=== PATIENT | female | born 1955 | race Caucasian/White ===

== ENCOUNTER 2019-10-29 10:10 | Day surgery (SDC) | payer OTHER, SELFPAY ==
[2019-10-29] MEDS: SODIUM CHLORIDE 0.9% 1,000 ML 200 ML IV (10:27)
[2019-10-29 10:41] VITALS: BP 138/79; PULSE 80; RESP 15; TEMP 36.6; O2SAT 97
[2019-10-29 10:42] VITALS: BMI 25.8
--- NOTE | 2019-10-29 11:31 | PM.HP.1 ---
History of Present Illness History of Present Illness Date Patient Seen: 10/29/19 Time Patient Seen: 11:40 Chief complaint: [id number] Narrative: Patient presents for colorectal screening. There prior colonoscopy 5 years ago which was significant for 3 adenomatous polyps which were removed.. No personal or family history of colon cancer. On further history denies any recent gastrointestinal symptoms. No nausea, vomiting, abdominal pain, loss of appetite, unexplained weight loss, change in bowel habits, diarrhea, constipation, melena, hematochezia, or bright red blood per rectum. Patient History Medical History (Updated 10/29/19 @ 11:41 by Arnaldo Baeza MD) Adenomatous polyps (Acute) HTN (hypertension) (Acute) Family & Social History Social History: household members friend(s) Tobacco & Substance use: Smoking Status Never smoker alcohol intake frequency a few times a week Substance Use Type does not use Meds Home Medications and Allergies Home Medications Medication Instructions Recorded Confirmed Type Cozaar 50 mg PO DAILY 10/29/19 10/29/19 History Lamictal 100 mg PO DAILY 10/29/19 10/29/19 History hydrochlorothiazide 25 mg PO DAILY 10/29/19 10/29/19 History Allergies Allergy/AdvReac Type Severity Reaction Status Date / Time No Known Drug Allergies Allergy Verified 10/29/19 10:31 Review of Systems Review of Systems Narrative: A 10 point review of systems is negative except as noted in the HPI Exam Vital Signs (past 8 hours): - 10/29/19 10:41 Temperature 97.8 F Pulse Rate 80 Respiratory Rate 15 Blood Pressure 138/79 Pulse Oximetry 97 Oxygen Delivery Method Room Air Narrative Exam Narrative: General-no acute distress, well nourished HEENT-moist mucous membranes, no scleral icterus Neck-supple, no lymphadenopathy Chest- non labored respirations, clear to auscultation bilaterally Cardiac-regular rate no peripheral edema Abdomen-soft, nontender, non distended Extremities-warm, well perfused Neurological-alert and oriented, no focal deficits Assessment & Plan Assessment and plan (1) Screening for colon cancer: Current visit: Yes Status: Acute Assessment & Plan narrative: The patient requires colorectal screening and colonoscopy is recommended. Technical details were discussed. Risks, benefits, alternatives explained. Risks including but not limited to myocardial infarction, aspiration, bleeding, pain, missed lesion, incomplete examination, need for further radiographic studies, colonic perforation, and need for major abdominal surgery were discussed. All questions were answered to their satisfaction, and they are in agreement with this plan.
--- NOTE | 2019-10-29 12:16 | PM.OP.ENDO ---
Operative Date/Time/Diagnoses Date of procedure: 10/29/19 Time of procedure: 12:17 Pre-op diagnosis: Screening colonoscopy Post-op diagnosis: same Procedure & Clinicians Study performed: Colonoscopy Same procedure as scheduled: Yes Indications: 64-year-old female last colonoscopy 5 years ago demonstrated abdomen was polyps here for routine screening. Surgeon: Arnaldo Baeza Procedure Notes SCOAP/Timeout: Performed Procedure in detail: Patient placed in left lateral decubitus position. Time out was performed. Procedural sedation was administered with Versed and Fentanyl. A rectal exam demonstrated no external hemorrhoids no internal masses. Colonoscopy scope was placed into the rectum and advanced through the colon to the cecum. The ileocecal valve was identified. The scope was then slowly withdrawn examining colon thoroughly in all directions. The colonoscopy was notable for the following 1. Sigmoid diverticulosis 2. Grade 2 internal hemorrhoids 3. No polyps or masses 4. Quality of prep excellent Scope withdrawal time: 6 Sedation minutes: 30 Findings: diverticulosis and internal hemorrhoids Specimen(s): none sent Complications: none Impression: Diverticulosis Post-procedure Recommendations: Colonscopy in 10 years Disposition: same day surgery
[2019-10-29] MEDS: fentaNYL 250 MCG/5 ML INJ IV (12:18)
[2019-10-29] MEDS: MIDAZOLAM 5 MG/5 ML VIAL IV (12:19)
[2019-10-29 12:20] VITALS: BP 150/79; PULSE 75; RESP 16; TEMP 36.1; O2SAT 99
[2019-10-29 12:25] VITALS: BP 130/76; PULSE 72; RESP 23; O2SAT 98
[2019-10-29 12:44] VITALS: BP 126/80; PULSE 72; RESP 14; TEMP 36; O2SAT 99
--- NOTE | 2019-10-29 12:50 | SUR.PHASEII ---
Patient c/o of some cramping. Told patient if cramping increases to call
== END 2019-10-29 12:52 | disposition home or self-care (01) ==
PROVIDERS: PCP Internal Medicine Geriatric Medicine; Referring Provider Internal Medicine Geriatric Medicine; Visit Provider Surgery
PROC: 0DJD8ZZ Inspection of Lower Intestinal Tract, Via Natural or Artificial Opening Endoscopic (ICD-10-PCS; CPT 45378; principal; 2019-10-29 11:30)
DX: Z12.11 Encounter for screening for malignant neoplasm of colon (principal); K57.30 Diverticulosis of large intestine without perforation or abscess without bleeding; K64.1 Second degree hemorrhoids
CPT/HCPCS: 45378; 99152; 99153; J2250; J3010

== ENCOUNTER → 2020-10-17 08:03 | Outpatient (CLI) | payer OTHER, SELFPAY ==
[2020-10-17] MEDS: COVID-19 VACC #1, MRNA(MOD) 100 MCG/0.5 ML VIAL IM (08:09)
== END ==
PROVIDERS: PCP Internal Medicine Geriatric Medicine; Visit Provider Internal Medicine
DX: Z23 Encounter for immunization (principal)
CPT/HCPCS: 0011A; 91301

== ENCOUNTER → 2020-11-14 08:05 | Outpatient (CLI) | payer OTHER, SELFPAY ==
[2020-11-14] MEDS: COVID-19 VACC #2, MRNA(MOD) 100 MCG/0.5 ML VIAL IM (08:11)
== END ==
PROVIDERS: PCP Internal Medicine Geriatric Medicine; Visit Provider Internal Medicine
DX: Z23 Encounter for immunization (principal)
CPT/HCPCS: 0012A; 91301